=== PATIENT | female | born 1995 | race Caucasian/White ===

== ENCOUNTER 2020-07-24 07:26 | Emergency (ER) | payer BC ==
[2020-07-24 07:34] VITALS: BP 116/67; PULSE 105
[2020-07-24 08:00] LABS: CHLORIDE,CL 102 mEq/L (98-106); SODIUM,NA 138 mEq/L (136-145)
--- NOTE | 2020-07-24 08:18 | EDM.PDOC ---
ED HPI GENERAL MEDICAL PROBLEM - General Chief Complaint: Back Pain or Injury Stated Complaint: low back, pelvic pain,fever Time Seen by Provider: 07/24/20 08:12 Source of Information: Reports: Patient History Limitations: Reports: No Limitations - History of Present Illness INITIAL COMMENTS - FREE TEXT/NARRATIVE: This patient is a 25 year old female that presents to the ER. Patient reports that she is about 7 weeks . She reports her LMP was June 12. She reports G 1, P 0, A 0. She reports started 2 days ago with chills, headache, lower back pain, left lower back pain worse than right. She reports left lower pelvic pain. Patient reports having nausea, but no vomiting. She reports mild shortness of breath. Onset Date: 07/22/20 Duration: Day(s): (2) Severity: Moderate Improves with: Reports: None Worsens with: Reports: None Associated Symptoms: Reports: Fever/Chills, Headaches, Nausea/Vomiting, Shortness of Breath. Denies: Confusion, Chest Pain, Cough, cough w sputum, Diaphoresis, Loss of Appetite, Malaise, Rash, Seizure, Syncope, Weakness Lower Back Pain Score (Numeric/FACES): 8 - Related Data Allergies Allergy/AdvReac Type Severity Reaction Status Date / Time bee venom protein (honey bee) Allergy Hives Verified 07/24/20 07:30 Home Meds: Home Meds . [No Known Home Meds] 05/15/14 [History] Past Medical History - Past Health History Medical/Surgical History: Denies Medical/Surgical History Social & Family History - Family History Family Medical History: No Pertinent Family History - Tobacco Use Tobacco Use Status *Q: Never Tobacco User - Caffeine Use Caffeine Use: Reports: None - Recreational Drug Use Recreational Drug Use: No - Living Situation & Occupation Living situation: Reports: Single, with Family Occupation: Student ED ROS GENERAL - Review of Systems Review Of Systems: See Below Constitutional: Reports: Fever, Chills, Malaise, Fatigue HEENT: Reports: No Symptoms Respiratory: Reports: Shortness of Breath. Denies: Wheezing, Cough, Sputum Cardiovascular: Reports: No Symptoms Endocrine: Reports: No Symptoms GI/Abdominal: Reports: Abdominal Pain, Nausea. Denies: Constipation, Diarrhea, Vomiting : Reports: Flank Pain (bilateral). Denies: Dysuria, Hematuria, Urgency, Urinary Retention Musculoskeletal: Reports: Back Pain (lower, bilateral/central) Skin: Reports: No Symptoms Neurological: Reports: Headache. Denies: Confusion, Dizziness, Numbness, Syncope, Tingling, Trouble Speaking, Weakness, Change in Speech Psychiatric: Reports: No Symptoms Hematologic/Lymphatic: Reports: No Symptoms Immunologic: Reports: No Symptoms ED EXAM - Physical Exam Exam: See Below Exam Limited By: No Limitations General Appearance: Alert, WD/WN, Anxious, Moderate Distress (in pain, standing position.) Eye Exam: Bilateral Eye: Normal Inspection, PERRL Ears: Normal External Exam, Normal Canal, Hearing Grossly Normal, Normal TMs Nose: Normal Inspection, Normal Mucosa, No Blood Throat/Mouth: Normal Inspection, Normal Lips, Normal Teeth, Normal Gums, Normal Oropharynx, Normal Voice, No Airway Compromise Head: Atraumatic, Normocephalic Neck: Normal Inspection, Supple, Non-Tender, Full Range of Motion Respiratory/Chest: No Respiratory Distress, Lungs Clear, Normal Breath Sounds, No Accessory Muscle Use Cardiovascular: Normal Peripheral Pulses, Regular Rate, Rhythm, No Edema, No Gallop, No JVD, No Murmur, No Rub GI/Abdominal Exam: Soft, No Organomegaly, Pelvis Stable, Tender (LLQ) Rectal Exam: Deferred (Female) Exam: Adnexal Tenderness (LEFT), Cervical Discharge. No: Vaginal Bleeding Heart Tones: Not [place] Movement: Not Appreciated Back Exam: Normal Inspection, Full Range of Motion, Paraspinal Tenderness (bilateral) Extremities: Normal Inspection, Normal Range of Motion, Non-Tender, No Pedal Edema, Normal Capillary Refill Neurological: Alert, Oriented, Normal Cognition, Normal Gait, No Motor/Sensory Deficits Psychiatric: Normal Affect, Normal Mood Skin Exam: Warm, Dry, Intact, Normal Color, No Rash Lymphatic: No Adenopathy Course - Vital Signs Last Recorded V/S: Last Vital Signs Temp 99.2 F 07/24/20 07:30 Pulse 105 H 07/24/20 07:30 Resp 18 07/24/20 07:30 BP 116/67 07/24/20 07:30 Pulse Ox 100 07/24/20 07:30 - Orders/Labs/Meds Orders: Active Orders 24 hr Category Date Time Status Serum Beta-HCG [BHCG QUANTITATIVE] [REF] Stat Lab 07/24/20 07:50 Received Labs: Laboratory Tests 07/24/20 07/24/20 07/24/20 Range/Units 07:25 07:50 07:50 WBC 4.3 L (5.0-10.0) 10^3/uL RBC 4.34 (4.00-5.50) 10^6/uL Hgb 12.4 (12.0-16.0) g/dL Hct 37.9 (37.0-47.0) % MCV 87.3 (82.0-94.0) fL MCH 28.6 (27.0-32.0) pg MCHC 32.7 L (33.0-38.0) g/dL RDW Coeff of Jaison 13.4 (11.0-15.0) % Plt Count 366 (150-400) 10^3/uL Neut % (Auto) 77.5 (35-85) % Lymph % (Auto) 11.5 (10-55) % [place] % (Auto) 10.8 (0-16) % Eos % (Auto) 0 (0-5) % Baso % (Auto) 0.2 (0-3) % Neut # (Auto) 3.31 (1.80-7.00) 10^3/uL Lymph # (Auto) 0.49 L (1.00-4.80) 10^3/uL [place] # (Auto) 0.46 (0.00-0.80) 10^3/uL Eos # (Auto) 0.00 (0.00-0.45) 10^3/uL Baso # (Auto) 0.01 10^3/uL Sodium (136-145) mEq/L Potassium (3.5-5.0) mEq/L Chloride (98-106) mEq/L Carbon Dioxide (21-32) mmol/L BUN (7-18) mg/dL Creatinine (0.6-1.0) mg/dL Est Cr Clr Drug Dosing mL/min Estimated GFR (MDRD) (>=60) mL/min Glucose (75-99) mg/dL Calcium (8.4-10.1) mg/dL Amylase (25-115) U/L Lipase (73-393) U/L Urine Color Yellow (YELLOW) Urine Appearance Clear (CLEAR) Urine pH 5.5 (4.5-8.0) Ur Specific [place] >= 1.030 H (1.003-1.020) Urine Protein 30 H (NEGATIVE) mg/dL Urine Glucose (UA) Negative (NEGATIVE) mg/dL Urine Ketones 80 H (NEGATIVE) mg/dL Urine Occult Blood Negative (NEGATIVE) Urine Nitrite Negative (NEGATIVE) Urine Bilirubin Negative (NEGATIVE) Urine Urobilinogen 0.2 (0.2-1.0) EU/dL Ur Leukocyte Esterase Negative (NEGATIVE) Urine RBC Not seen (0-5) /HPF Urine WBC Not seen (0-5) /HPF Ur Epithelial Cells Moderate H (NOT SEEN) /HPF Urine Bacteria Occasional H (NOT SEEN) /HPF Urine HCG, Qual Influenza Type A RNA Negative (NEGATIVE) Influenza Type B RNA Negative (NEGATIVE) SARS-CoV-2 RNA (SARAH) Positive H (NEGATIVE) 07/24/20 07/24/20 Range/Units 07:50 07:50 WBC (5.0-10.0) 10^3/uL RBC (4.00-5.50) 10^6/uL Hgb (12.0-16.0) g/dL Hct (37.0-47.0) % MCV (82.0-94.0) fL MCH (27.0-32.0) pg MCHC (33.0-38.0) g/dL RDW Coeff of Jaison (11.0-15.0) % Plt Count (150-400) 10^3/uL Neut % (Auto) (35-85) % Lymph % (Auto) (10-55) % [place] % (Auto) (0-16) % Eos % (Auto) (0-5) % Baso % (Auto) (0-3) % Neut # (Auto) (1.80-7.00) 10^3/uL Lymph # (Auto) (1.00-4.80) 10^3/uL [place] # (Auto) (0.00-0.80) 10^3/uL Eos # (Auto) (0.00-0.45) 10^3/uL Baso # (Auto) 10^3/uL Sodium 138 (136-145) mEq/L Potassium 4.0 (3.5-5.0) mEq/L Chloride 102 (98-106) mEq/L Carbon Dioxide 24 (21-32) mmol/L BUN 8 (7-18) mg/dL Creatinine 0.9 (0.6-1.0) mg/dL Est Cr Clr Drug Dosing 76.23 mL/min Estimated GFR (MDRD) > 60 (>=60) mL/min Glucose 107 H (75-99) mg/dL Calcium 9.0 (8.4-10.1) mg/dL Amylase 30 (25-115) U/L Lipase 51 L (73-393) U/L Urine Color (YELLOW) Urine Appearance (CLEAR) Urine pH (4.5-8.0) Ur Specific [place] (1.003-1.020) Urine Protein (NEGATIVE) mg/dL Urine Glucose (UA) (NEGATIVE) mg/dL Urine Ketones (NEGATIVE) mg/dL Urine Occult Blood (NEGATIVE) Urine Nitrite (NEGATIVE) Urine Bilirubin (NEGATIVE) Urine Urobilinogen (0.2-1.0) EU/dL Ur Leukocyte Esterase (NEGATIVE) Urine RBC (0-5) /HPF Urine WBC (0-5) /HPF Ur Epithelial Cells (NOT SEEN) /HPF Urine Bacteria (NOT SEEN) /HPF Urine HCG, Qual Positive Influenza Type A RNA (NEGATIVE) Influenza Type B RNA (NEGATIVE) SARS-CoV-2 RNA (SARAH) (NEGATIVE) Meds: Medications Discontinued Medications Generic Name Dose Route Start Last Admin Trade Name Freq PRN Reason Stop Dose Admin Hydrocodone Bitart/Acetaminophen 1 tab 07/24/20 08:47 07/24/20 08:52 Acetaminophen/Hydrocodone 325-5 Mg Tab PO 07/24/20 08:48 Not Given ONETIME ONE - Re-Assessments/Exams Free Text/Narrative Re-Assessment/Exam: 07/24/20 08:45 I called and spoke to Dr. Tamez about possible ectopic and patient presentation. She reports to transfer for US. I called their [place] ER, Dr. Hopson accepted the patient. I have him report. Dr. Barr reports can give patien t a hydrocodone, due to no food on belly, patient has declined. Will transfer private vehicle per patient decision. Departure - Departure Time of Disposition: 08:51 Disposition: DC/Tfer to Acute Hospital 02 Condition: Fair Clinical Impression: Pelvic pain, COVID-19 Qualifiers: Weeks of gestation: less than 8 weeks Qualified Code(s): Z3A.01 - Less than 8 weeks gestation of - Discharge Information *PRESCRIPTION DRUG MONITORING PROGRAM REVIEWED*: Not Applicable *COPY OF PRESCRIPTION DRUG MONITORING REPORT IN PATIENT BRIAN: Not Applicable Referrals: PCP,None [Primary Care Provider] - Forms: ED Department Discharge Additional Instructions: Go directly to [facility] I spoke with Dr. Jayshree Tamez OB and Dr. Hopson ER Sepsis Event Note (ED) - Evaluation Sepsis Screening Result: No Definite Risk - Focused Exam Vital Signs: Vital Signs Temp Pulse Resp BP Pulse Ox 07/24/20 07:30 99.2 F 105 H 18 116/67 100 - My Orders Last 24 Hours: My Active Orders 07/24/20 07:50 Serum Beta-HCG [BHCG QUANTITATIVE] [REF] Stat - Assessment/Plan Last 24 Hours: My Active Orders 07/24/20 07:50 Serum Beta-HCG [BHCG QUANTITATIVE] [REF] Stat Plan: PLEASE SEE RN NOTE FOR PFSH. Patient being transferred to [facility]. Risk vs Benefits explained to patient, she has accepted. Risk of transfer is MVC, , worsening of condition, loss of fetus. The benefits of staying in [place] is close to home. The benefits of transfer are US capabilities, OB capabilities. The Risk of staying in [place] is no US capabilities.
[2020-07-24] MEDS: Acetaminophen/HYDROcodone 325-5 MG Tab PO ONE (08:52)
== END 2020-07-24 09:17 | disposition critical access hospital (66) ==
LOC: CC.ED 07:26
DX: O98.511 Other viral diseases complicating pregnancy, first trimester (principal); O99.891 Other specified diseases and conditions complicating pregnancy; U07.1 COVID-19; R10.2 Pelvic and perineal pain; Z3A.01 Less than 8 weeks gestation of pregnancy
CPT/HCPCS: 0240U; 36415; 80048; 81001; 81025; 82150; 83690; 84702; 85025; 87804; 99284; U0002